=== PATIENT | female | born 1995 | race Caucasian/White ===

== ENCOUNTER 2024-08-17 23:05 | Observation (INO) | payer OTHER ==
[~2024-08-17] VITALS: Ht 162.6 cm; Wt 105.7 kg
[2024-08-18 00:09] LABS: BASOPHILS ABSOLUTE AUTO 0.06 K/mm3 (0.00-0.23); BASOPHILS PERCENT AUTO 1 % (0-2); EOSINOPHILS PERCENT AUTO 2 % (0-6); Hemoglobin 13.9 g/dL (11.5-16.0); IMMATURE GRAN ABSOLUTE AUTO 0.04 K/mm3 (0.00-0.10); IMMATURE GRAN PERCENT AUTO 1 % (0-1); LYMPHOCYTES ABSOLUTE AUTO 2.13 K/mm3 (0.84-5.20); LYMPHOCYTES PERCENT AUTO 26 % (21-46); MONOCYTES ABSOLUTE AUTO 0.73 K/mm3 (0.16-1.47); MONOCYTES PERCENT AUTO 9 % (4-13); Mean Corpuscular HGB 28.1 pg (26.0-34.0); Mean Corpuscular HGB Conc 33.1 g/dL (31.5-36.5); Mean Corpuscular Volume 85 fL (80-100); NEUTROPHILS ABSOLUTE AUTO 5.18 K/mm3 (1.96-9.15); NEUTROPHILS PERCENT AUTO 62 % (41-73); Platelet Count 263 K/mm3 (150-400); RDW Coefficient Variation 13.4 % (11.7-14.2); RDW Standard Deviation 41.6 fL (35.1-46.3); Red Blood Cell Count 4.95 M/mm3 (3.80-5.20); White Blood Cell Count 8.34 K/mm3 (4.00-11.30)
[2024-08-18 00:33] LABS: Albumin, Blood 3.7 g/dL (3.4-5.0); Bilirubin, Total 0.2 mg/dL (0.1-1.0); Bun/Creatinine Ratio 17.6 (12.0-20.0); Calcium, Blood 8.6 mg/dL (8.5-10.1); Creatinine, Blood 0.85 mg/dL (0.40-1.00); Globulin, Blood 3.7 g/dL (2.2-4.0); Total Protein, Blood 7.4 g/dL (6.4-8.2)
[2024-08-18] MEDS ORDERED: Metoclopramide HCl 5MG / ML 2ML Vial IV PRN (01:20)
[2024-08-18] MEDS ORDERED: Ondansetron HCl 2 MG / ML 2ML Vial IV PRN (01:20)
[2024-08-18] MEDS ORDERED: FLU VACC TS2024-25(6MOS UP)/PF 45 MCG/0.5 ML SYRINGE IM SCH (01:20)
[2024-08-18] MEDS ORDERED: Lactated Ringer's 1,000 ML IV SCH (01:20)
[2024-08-18] MEDS ORDERED: FentaNYL Citrate 50 MCG/ML 2 ML Injection IV PRN (01:20)
[2024-08-18 01:21] LABS: Source, Urine Clean Catch
[2024-08-18] MEDS ORDERED: QUETIAPINE FUMA5012 PO (01:26)
[2024-08-18] MEDS ORDERED: Ativan1 MG PO (01:27)
[2024-08-18] MEDS ORDERED: DULOXETINE HCL60 M1 PO (01:27)
[2024-08-18] MEDS ORDERED: Ritalin10 MG PO (01:28)
[2024-08-18] MEDS ORDERED: QUETIAPINE FUM100 M1 PO (01:29)
[2024-08-18 01:30] LABS: Bilirubin, Urine Neg (Neg); Blood, Urine 5+ (Neg); Glucose Qualitative, Urine Neg (Neg); Ketones, Urine Neg (Neg); Leukocyte Esterase, Urine Neg (Neg); Nitrite, Urine Neg (Neg); Protein, Urine 1+ (Neg); Specific Gravity, Urine 1.015 (1.003-1.022); Urobilinogen, Urine NORM (Normal)
[2024-08-18] MEDS ORDERED: L-LYSINE500 MG PO (01:31)
[2024-08-18] MEDS ORDERED: GUANFACINE HCL E1 MG PO (01:31)
[2024-08-18 01:47] LABS: Appearance, Urine Hazy (Clear); Color, Urine Yellow (P-Yellow)
[2024-08-18 01:48] LABS: Amorphous Light (0-Heavy); Bacteria Few /hpf; Mucus Light (0-Heavy); Red Blood Cells, Urine 25-50 /hpf (0-2); Squamous Epithelial Cells Mod /hpf (Few); White Blood Cells, Urine 0-2 /hpf (0-5)
[2024-08-18 02:46] VITALS: BP 119/66
[2024-08-18 04:50] LABS: BASOPHILS ABSOLUTE AUTO 0.05 K/mm3 (0.00-0.23); BASOPHILS PERCENT AUTO 1 % (0-2); EOSINOPHILS ABSOLUTE AUTO 0.19 K/mm3 (0.00-0.68); EOSINOPHILS PERCENT AUTO 3 % (0-6); Hematocrit 36.9 % (33.0-51.0); Hemoglobin 12.4 g/dL (11.5-16.0); IMMATURE GRAN ABSOLUTE AUTO 0.03 K/mm3 (0.00-0.10); IMMATURE GRAN PERCENT AUTO 0 % (0-1); LYMPHOCYTES ABSOLUTE AUTO 1.77 K/mm3 (0.84-5.20); LYMPHOCYTES PERCENT AUTO 24 % (21-46); MONOCYTES ABSOLUTE AUTO 0.74 K/mm3 (0.16-1.47); MONOCYTES PERCENT AUTO 10 % (4-13); Mean Corpuscular HGB 28.6 pg (26.0-34.0); Mean Corpuscular HGB Conc 33.6 g/dL (31.5-36.5); Mean Corpuscular Volume 85 fL (80-100); Mean Platelet Volume 8.1 fL (9.1-12.4); NEUTROPHILS ABSOLUTE AUTO 4.63 K/mm3 (1.96-9.15); NEUTROPHILS PERCENT AUTO 62 % (41-73); Platelet Count 232 K/mm3 (150-400); RDW Coefficient Variation 13.3 % (11.7-14.2); RDW Standard Deviation 41.6 fL (35.1-46.3); Red Blood Cell Count 4.34 M/mm3 (3.80-5.20); White Blood Cell Count 7.41 K/mm3 (4.00-11.30)
--- NOTE | 2024-08-18 04:54 | NUR ---
SHIFT UPDATE PT ABLE TO REST DURING SHIFT. RATES PAIN 3/10 RLQ ABD, DESCRIBES "SHARP BUT MINIMAL". DECLINES ANALGESICS AT THIS TIME. NPO STATUS, REPORTS LAST PO INTAKE BEFORE MIDNIGHT 08/17/24, SMALL AMOUNT OF APPLE JUICE IN ED. DENIES NAUSEA. PT VOICED UNDERSTANDING OF PLAN OF CARE, DENIES QUESTIONS/CONCERNS AT THIS TIME.
[2024-08-18 07:13] VITALS: BP 130/76
[2024-08-18] MEDS ORDERED: LORazepam 1 MG Tab PO PRN (07:45)
[2024-08-18] MEDS ORDERED: Methylphenidate HCL 10 MG TAB PO SCH ×3 (08:40→12:00)
[2024-08-18] MEDS ORDERED: Methotrexate Sod 25MG / ML 2ML Vial IM ONE (09:25)
[2024-08-18 10:17] LABS: BASOPHILS ABSOLUTE AUTO 0.04 K/mm3 (0.00-0.23); BASOPHILS PERCENT AUTO 1 % (0-2); EOSINOPHILS ABSOLUTE AUTO 0.15 K/mm3 (0.00-0.68); EOSINOPHILS PERCENT AUTO 2 % (0-6); Hematocrit 41.5 % (33.0-51.0); Hemoglobin 13.7 g/dL (11.5-16.0); IMMATURE GRAN ABSOLUTE AUTO 0.02 K/mm3 (0.00-0.10); IMMATURE GRAN PERCENT AUTO 0 % (0-1); LYMPHOCYTES ABSOLUTE AUTO 1.57 K/mm3 (0.84-5.20); LYMPHOCYTES PERCENT AUTO 25 % (21-46); MONOCYTES ABSOLUTE AUTO 0.56 K/mm3 (0.16-1.47); MONOCYTES PERCENT AUTO 9 % (4-13); Mean Corpuscular HGB 27.8 pg (26.0-34.0); Mean Corpuscular Volume 84 fL (80-100); NEUTROPHILS ABSOLUTE AUTO 3.93 K/mm3 (1.96-9.15); NEUTROPHILS PERCENT AUTO 63 % (41-73); Platelet Count 254 K/mm3 (150-400); RDW Coefficient Variation 13.3 % (11.7-14.2); RDW Standard Deviation 41.3 fL (35.1-46.3); Red Blood Cell Count 4.93 M/mm3 (3.80-5.20); White Blood Cell Count 6.27 K/mm3 (4.00-11.30)
[2024-08-18 14:25] VITALS: BP 118/56
--- NOTE | 2024-08-18 15:50 | NUR ---
DISCHARGE NOTE PT EXPRESSES VERBAL UNDERSTANDING OF DISCHARGE INSTRUCTIONS. VSS. PAIN MANAGED WITHOUT MEDICATION AT THIS TIME. DENIES N/V. DECLINED BEING WHEELED OUT TO CAR VIA WHEELCHAIR AND WALKED OUT WITH HER SIGNIFICANT OTHER.
[2024-08-18] MEDS ORDERED: GuanFACINE HCl 1 MG Tab PO SCH (21:00)
[2024-08-18] MEDS ORDERED: QUEtiapine Fumarate 100 MG Tab PO SCH (21:00)
[2024-08-18] MEDS ORDERED: DULoxetine HCL 60 MG Capsule DR PO SCH (21:00)
== END 2024-08-18 15:54 | disposition home or self-care (01) ==
LOC: ER 23:05 → SURS 23:06
PROVIDERS: Student in an Organized Health Care Education/Training Program; ADMIT Obstetrics & Gynecology
DX: O00.90 Unspecified ectopic pregnancy without intrauterine pregnancy (principal)
CPT/HCPCS: 36415; 76801; 76817; 80053; 81001; 84702; 85025; 86900; 86901; 96374; 99285-25; A9270; G0378; J7120; J9250

== ENCOUNTER → 2024-10-30 | Outpatient (CLI) | payer OTHER ==
[~2024-10-30] MED LIST: Ativan1 MG PO; DULOXETINE HCL60 M1 PO; GUANFACINE HCL E1 MG PO; L-LYSINE500 MG PO; QUETIAPINE FUM100 M1 PO; QUETIAPINE FUMA5012 PO; Ritalin10 MG PO
[2024-11-11 13:32] LABS: HPV GENOTYPE 16 BY TMA Not Detected; HPV GENOTYPE 18/45 BY TMA Not Detected; HPV HIGH RISK BY TMA Detected; HPV SOURCE Cervical; HPVG SOURCE Cervical
== END ==
LOC: LAB SHORT 16:20 → LAB 16:20
PROVIDERS: Physician Assistant
DX: Z87.42 Personal history of other diseases of the female genital tract (principal)
CPT/HCPCS: 87624; 87625; G0123